=== PATIENT | female | born 1955 | race Caucasian/White ===

== ENCOUNTER 2019-09-03 00:57 | Observation (INO) | payer MEDICARE, SELFPAY ==
[2019-09-03] VITALS (8 sets, daily range): BP systolic 126–176; BP diastolic 78–97; PULSE 86–100; RESP 16–20; TEMP 36.7–37.1; O2SAT 92–96; BMI 39.5
--- NOTE | ~2019-09-03 | CT_ITS ---
EXAMINATION: CT brain wo con DATE: 09/03/2019 01:41 INDICATION: Posterior head injury TECHNIQUE: Computed tomography (CT) of the head was performed without intravenous contrast. Sagittal and coronal reconstructions were performed. The mA was adjusted according to patient size. Iterative reconstruction technique was employed. The dose-length product was 681.00 mGy-cm. COMPARISON: None FINDINGS: Right parietal scalp hematoma and laceration with a few foci of soft tissue gas. No fracture. No acut e intracranial hemorrhage, acute infarction or abnormal extra axial fluid collection. Ventricles are normal and symmetric. No mass/mass effect. The orbits, paranasal sinuses and mastoid air cells are no rmal. IMPRESSION: 1. No fracture or acute intracranial process. Reviewed, dictated and finalized at location A.
--- NOTE | ~2019-09-03 | CT_ITS ---
EXAMINATION: CT cervical spine wo con DATE: 09/03/2019 01:42 INDICATION: Posterior neck injury TECHNIQUE: Computed tomography (CT) of the cervical spine was performed without intravenous contrast. Automated exposure control and iterative reconstruction technique were employed. The dose-length pro duct was 524.97 mGy-cm. COMPARISON: MRI dated 12/11/2010 FINDINGS: Again seen is straightening of the lower cervical spine with C6-T1 anterior spinal fusion with anteri or plate and screw fixation at C7-T1. 2-3 mm anterolisthesis C5 on C6. Unfused vertebral body heights are normal. No acute fracture. Mild disc height loss at C2-C3 and C3-C4 and moderate disc height los s at C4-C5 and C5-C6 as well as at T1-T2 through T3-T4. There is mild disc height loss resulting from disc osteophyte complexes at a few levels most prominent at C4-C5 as well as due to a right paracent ral posterior osteophyte at the fused C6-C7 level. Bilateral multilevel facet osteoarthritis, severe at several levels in the cervical and upper thoracic spine with associated mild and moderate neural f oraminal stenosis. Cervical soft tissues are unremarkable. Mild emphysema suggested the apices of nolberto gs however specificities decreased by respiratory motion. IMPRESSION: 1. Moderate cervical spondylosis with anterior fusion at C6-T1. No acute osseous abnormality. Reviewed, dictated and finalized at location A. IMPRESSION: 1. Moderate cervical spondylosis with anterior fusion at C6-T1. No acute osseou s abnormality.
--- NOTE | 2019-09-03 01:35 | PC.NURSE ---
Skin tear located on front of lower left leg, area cleaned and dressed with band-aid, Pt. tolerated well.
[2019-09-03] MEDS: MORPHINE SULFATE 4 MG/ML INJ IV PUSH (01:37)
[2019-09-03] MEDS: TETANUS,DIPHTHERIA,AC PERTUSSIS ADULT 0.5 ML (ADACEL) IM (01:39)
[2019-09-03 01:46] LABS: Hematocrit 40.4 % (35.0-49.0); Hemoglobin 13.7 g/dL (12.0-15.0); Mean Corpuscular HGB Conc 33.9 g/dL (32.0-36.0); Mean Corpuscular Hemoglobin 30.8 pg (27.0-31.0); Mean Corpuscular Volume 90.8 fL (78.0-102.0); Mean Platelet Volume 9.2 fl (9.2-11.8); Platelet Count Result 216 K/mm3 (150-420); Red Blood Count 4.45 M/mm3 (4.20-5.40); Red Cell Distribution Width 12.7 % (11.6-14.4); White Blood Count 7.7 K/mm3 (4.8-10.8)
[2019-09-03 01:59] LABS: Partial Thromboplastin Time 25.7 SEC (22.3-31.6)
[2019-09-03 02:00] LABS: Alanine Aminotransferase 28 U/L (14-59); Albumin Level 3.8 g/dL (3.4-5.0); Alkaline Phosphatase 112 U/L (46-116); Anion Gap 18.2 mmol/L (7-16); Aspartate Amino Transferase 29 U/L (15-37); Bilirubin,Total 0.4 mg/dL (0.00-1.00); Blood Urea Nitrogen 13 mg/dL (7-18); Calcium 8.9 mg/dL (8.5-10.1); Carbon Dioxide 23 mmol/L (21-32); Chloride 100 mmol/L (98-108); Estimated CRCL calculation 76 ml/min; Estimated Glomerular Filt Rate 53; Glucose 308 mg/dL (70-99); Osmolality Calculated 296 mOsm/kg (285-295); Potassium 4.2 mmol/L (3.5-5.1); Sodium 137 mmol/L (136-145); Total Protein 7.7 g/dL (6.4-8.2)
[2019-09-03 02:05] LABS: Add Urine Microscopic? YES; Appearance Urine Clear (Clear); Bilirubin Urine Negative (Negative); Blood Urine 2+ (Negative); Color Urine Yellow (Yellow); Glucose Urine UA 3+ (Negative); Ketones Urine Negative (Negative); Leukocyte Esterase Ur Negative (Negative); Nitrate Urine Negative (Negative); Protein Urine Trace (Negative); Urobilinogen Urine 0.2 mg/dL (0.2-1.0)
[2019-09-03 02:07] LABS: BNP 23 pg/mL (0-100)
[2019-09-03 02:11] LABS: Bacteria Urine None seen /hpf; Squamous Epithelial Cell Urine None seen /hpf (Few); WBC Urine 0-3 /hpf (0-3)
--- NOTE | 2019-09-03 02:48 | ED.FALL ---
HPI - Fall General Chief Complaint: Fall Stated Complaint: Fall, Laceration on head Source: patient and family Mode of arrival: EMS Limitations: no limitations History of Present Illness HPI Narrative: This is a 63-year-old female that presents via EMS after she took a fall earlier this a.m. as she was going to the bathroom she she fell backwards, this was not witnessed as her was in bed sleeping and he was awoken with a loud Bang. Unsure if the patient lost consciousness or not, the patient states that she did not lose consciousness, but presents with some laceration to the occipital scalp, and headache with some neck pain. Currently there is pain that is rated an 8/10, with some neck stiffness and a laceration that is gaping to the posterior occipital scalp area 5cm in length. Patient has a history of diabetes, hypertension. Current blood sugars are 308. Currently there is some no hip pain no lower or mid back pain no fever chills no shortness of breath no blurry vision. MD complaint: fall Onset (ago): hour(s) Fall from: standing Fall witnessed: no Place fall occurred: home Loss of consciousness: none Prolonged down time: no Symptoms prior to fall: none Context: tripped/slipped Location of injury: head and neck Severity: moderate Severity scale (1-10): 8 Quality: dull Associated symptoms (after fall): headache and neck pain Related Data Home Medications Medication Instructions Recorded Confirmed amlodipine 5 mg PO DAILY 09/03/19 09/03/19 enalapril maleate 20 mg PO DAILY 09/03/19 09/03/19 fluoxetine 20 mg PO DAILY 09/03/19 09/03/19 furosemide 40 mg PO BID 09/03/19 09/03/19 glipizide 10 mg PO DAILY 09/03/19 09/03/19 metformin 1,000 mg PO DAILY 09/03/19 09/03/19 metoprolol succinate 50 mg PO DAILY 09/03/19 09/03/19 potassium chloride 20 meq PO BID 09/03/19 09/03/19 sitagliptin [Januvia] 100 mg PO DAILY 09/03/19 09/03/19 Allergies Allergy/AdvReac Type Severity Reaction Status Date / Time Latex, Natural Rubber Allergy Unknown Verified 09/03/19 01:12 Review of Systems Review of Systems: All systems reviewed & are unremarkable except as noted in HPI and below PMFSH Past Medical History Medical History Diabetes mellitus HTN (hypertension) Exam Const: General: no acute distress and alert Nutritional Appearance: well nourished and obese Orientation/consciousness: patient oriented x3 HENMT: Head: normal to inspection, hematoma and laceration Head images: 1. 5cm gaping laceration Ears: external ears normal and TM's normal bilaterally Face and sinus: normal facial exam Eyes: Conjunctivae: conjunctivae normal Pupils: Equal, round and reactive pupils present EOM: EOMs intact bilaterally Neck: Neck: normal visual inspection, no lymphadenopathy and no meningeal signs Chest: Chest palpation & inspection: normal inspection of the chest Resp: Effort & Inspection: normal respiratory effort Auscultation: clear to auscultation bilaterally Cardio: Rate: regular rate Rhythm: regular rhythm GI: Auscultation: normal bowel sounds : General: Yes no CVA tenderness Back/Spine/Pelvis: Back: no CVA tenderness Skin: General skin exam: normal color Rashes: no rashes Neuro: General: patient oriented x3, moves all extremities, no meningeal signs, no focal motor deficits and CN's II-XI intact bilaterally Extrem: General: normal to inspection and edema Psych: Appearance: grossly normal and well kempt Mental Status: mental status grossly normal Affect: normal affect Attitude: cooperative Thought content: Yes Normal thought content present Course Course Emergency Course: reassessment of patient, the patient did receive 4 mg IV morphine and her pain level went from 8/10 to 6/10 patient and present and advised that we would admit the patient for observation and neuro checks. Vital Signs Vital signs: Vital Signs Blood Pressure 176/97
[2019-09-03] MEDS: NEOMYCIN/POLYMYXIN/BACITRACIN OINTMENT PACKET 2 PACKET (03:03)
--- NOTE | 2019-09-03 03:03 | PC.NURSE ---
Assisted with Dr. Shin with insertion of marlyn to back of the right occipital, cleaned with Cleanser Wound spray, sodium chloride, applied Neosporin, Telfa Dressing 05/15, and Sharon Yang, Pt. tolerated procedure well.
[2019-09-03] MEDS: HYDROMORPHONE HCL 2 MG/ML VIAL IV PUSH (03:11)
--- NOTE | 2019-09-03 03:30 | PC.NURSE ---
Patient admitted to room 226 from ER. Patient has gauze dressing to head with bloody shadowing over marlyn to the back of her head. She has an Ice pack to the back of her head. Patient is alert and oriented. She required assist of three to be moved from the stretcher to the bed. vital signs were taken and blood sugar checked. Patient is very diaphoretic upon admission. She is on room air. she has an IV in place in her left hand. Patient was educated vocational ed instructor light use and has it within reach.
--- NOTE | 2019-09-03 04:06 | ADMGEN ---
This patient, Ashwini Wheeler, was admitted to 2nd Floor Room 226-2. Patient/family oriented to hospital policies and general routines including ID bracelet, bed and alarms, visiting hours, pain management, procedures, bathroom and other care routines, personal items, smoking policy, room service/diet, and visiting hours. Valuables list has been completed. Information on how to activate the Rapid Response Team has been discussed. Patient/Family are encouraged to report perceived risks to care and to ask questions if they do not understand what they are told or what they should do.
--- NOTE | 2019-09-03 04:21 | PC.NURSE ---
[address] Shin regarding pt's redness in pt's abdominal fold. Orders received and noted.
[2019-09-03 04:52] LABS: Glucose Point of Care 327 (65-105)
[2019-09-03] MEDS: glipiZIDE 5 MG TABLET 10 MG PO (05:45)
[2019-09-03] MEDS: TOLNAFTATE 1% POWDER 45 GM BTL 1 APPLIC TOPICAL (05:45)
--- NOTE | 2019-09-03 07:00 | PC.NURSE ---
Patient states she feels ok. Returned to baseline.
[2019-09-03 07:42] LABS: Glucose Point of Care 397 (65-105)
--- NOTE | 2019-09-03 08:00 | PC.NURSE ---
atient states she feels ok. Returned to baseline.
[2019-09-03] MEDS: FLUoxetine HCL 10 MG CAPSULE 20 MG PO (08:39)
[2019-09-03] MEDS: ENALAPRIL MALEATE 5 MG TABLET 20 MG PO (08:39)
[2019-09-03] MEDS: FUROSEMIDE 40 MG TABLET PO (08:39)
[2019-09-03] MEDS: AMLODIPINE BESYLATE 5 MG TABLET PO (08:39)
[2019-09-03] MEDS: metFORMIN HCL 500 MG TABLET 1000 MG PO (08:40)
[2019-09-03] MEDS: POTASSIUM CHLORIDE 20 MEQ TABLET PO (08:40)
[2019-09-03] MEDS: METOPROLOL SUCCINATE EXT REL 50 MG TABCR PO (08:40)
[2019-09-03] MEDS: ACETAMINOPHEN 325 MG TABLET 650 MG PO (08:40)
[2019-09-03] MEDS: ONDANSETRON INJ 4 MG/2 ML VIAL IV PUSH (09:24)
[2019-09-03 10:00] LABS: Basophils Absolute Auto 0.03 K/mm3 (0.00-0.10); Basophils Percent Auto 0.3 % (0.0-1.0); Eosinophils Absolute Auto 0.01 K/mm3 (0.02-0.50); Eosinophils Percent Auto 0.1 % (1.0-6.0); Hematocrit 38.4 % (35.0-49.0); Hemoglobin 12.8 g/dL (12.0-15.0); Immature Granulocyte Absolute 0.03 K/mm3 (0.00-0.00); Immature Granulocyte Percent A 0.3 % (0.0-0.0); Lymphocytes Absolute Auto 1.26 K/mm3 (1.10-4.50); Mean Corpuscular HGB Conc 33.3 g/dL (32.0-36.0); Mean Corpuscular Hemoglobin 30.5 pg (27.0-31.0); Mean Corpuscular Volume 91.4 fL (78.0-102.0); Mean Platelet Volume 9.1 fl (9.2-11.8); Monocytes Absolute Auto 0.44 K/mm3 (0.10-0.90); Monocytes Percent Auto 4.5 % (2.0-11.0); Neutrophils Absolute Auto 7.9 K/mm3 (1.7-7.2); Neutrophils Percent Auto 81.8 % (50.0-70.0); Platelet Count Result 213 K/mm3 (150-420); Red Cell Distribution Width 12.8 % (11.6-14.4); White Blood Count 9.7 K/mm3 (4.8-10.8)
[2019-09-03 10:20] LABS: Alanine Aminotransferase 34 U/L (14-59); Albumin Level 3.6 g/dL (3.4-5.0); Alkaline Phosphatase 97 U/L (46-116); Aspartate Amino Transferase 59 U/L (15-37); Bilirubin,Total 0.5 mg/dL (0.00-1.00); Blood Urea Nitrogen 14 mg/dL (7-18); Calcium 8.4 mg/dL (8.5-10.1); Carbon Dioxide 30 mmol/L (21-32); Chloride 100 mmol/L (98-108); Estimated CRCL calculation 49 ml/min; Estimated Glomerular Filt Rate 46; Glucose 294 mg/dL (70-99); Osmolality Calculated 293 mOsm/kg (285-295); Sodium 136 mmol/L (136-145); Total Protein 7.2 g/dL (6.4-8.2)
--- NOTE | 2019-09-03 11:14 | PM.SD ---
Same Day Admit/Disch: HPI History of Present Illness Chief complaint: Fall, Laceration on head Narrative: Ashwini Wheeler is a 63 year old female that presented to the ED this morning post fall with head injury. Patient PMH is diabetes and hypertension. according to patient she was ambulating to the restroom this morning and slipped and fell hitting the back of her head. her was in the bed and heard a loud Bang and found the patient on the floor . patient noted that she did not lose consciousness. While in the ED a CT of the head and spine was completed which was negative for fracture or hemorrhage she was given pain medication and had a laceration on her posterior occipital scalp approximately 5 cm. with approximately [address] vital signs are 98.5, 95, 18, 94%, 126/78. patient's blood sugar is elevated she will receive additional insulin with her regular home meds. patient denies any memory problems, confusion, drowsiness or feeling sluggish, head pressure, slurred speech, fatigue, ringing in her ears, dizziness, double vision or blurred vision, nausea vomiting, shortness of breath, or chest pains she does have a slight headache that is controlled with Tylenol. her discharge paperwork will be faxed to her primary care physician she will need to go in a couple weeks to get the marlyn removed. [facility] Past Medical History Medical History Diabetes mellitus HTN (hypertension) Social History Social History Smoking packs per day: 1.5 Smoking cigarettes per day: 30.0 Years smoked: 14 Smoking pack-years: 21.00 Smoking status: Former smoker Tobacco type: cigarettes Second hand tobacco smoke exposure: Yes Alcohol intake: never Substance use: never Gender identity (if verbalized by the patient): Female Sexual Orientation (if Verbalized by the Patient): Straight or Heterosexual Spiritual care concerns: No Same Day Admit/Disch: Med Pre-admit Medications Home Medications Medication Instructions Recorded Confirmed Type amlodipine 5 mg PO DAILY 09/03/19 09/03/19 History enalapril maleate 20 mg PO DAILY 09/03/19 09/03/19 History fluoxetine 20 mg PO DAILY 09/03/19 09/03/19 History furosemide 40 mg PO BID 09/03/19 09/03/19 History glipizide 10 mg PO DAILY 09/03/19 09/03/19 History metformin 1,000 mg PO DAILY 09/03/19 09/03/19 History metoprolol succinate 50 mg PO DAILY 09/03/19 09/03/19 History potassium chloride 20 meq PO BID 09/03/19 09/03/19 History sitagliptin [Januvia] 100 mg PO DAILY 09/03/19 09/03/19 History Exam Narrative: Exam Narrative: General: A well-developed, well-nourished male sitting up in bed no acute distress. HEENT: Normocephalic, atraumatic. PERRL, EOMI. Sclerae anicteric. Oral mucosa moist. Oropharynx clear. Neck: Supple. Respiratory: Lungs are clear to auscultation bilaterally. Cardiovascular: Regular rate and rhythm with S1-S2. Gastrointestinal: Abdomen is soft, nontender, and nondistended with positive bowel sounds. No organomegaly. Skin: laceration to the posterior occipital scalp with approximately [address] and serosanguineous drainage Extremities: No cyanosis, clubbing, or edema. Radial and pedal pulses intact. Neurological: Alert. Cranial nerves 2-12 are grossly intact. No gross focal deficits to casual conversation. Psychiatric: Pleasant and cooperative with normal mood and affect. Judgment and insight intact. DS: Data Data Completed and Pending Labs on day of discharge: Labs from last 24 hours 09/03/19 09/03/19 09/03/19 09:53 09:53 07:34 WBC 9.7 RBC 4.20 Hgb 12.8 Hct 38.4 MCV 91.4 MCH 30.5 MCHC 33.3 RDW 12.8 Plt Count 213 MPV 9.1 L Immature Gran % (Auto) 0.3 H Neut % (Auto) 81.8 H Lymph % (Auto) 13.0 L [place] % (Auto) 4.5 Eos % (Auto) 0.1 L Baso % (Auto) 0.3 L
[2019-09-03 11:38] LABS: Glucose Point of Care 270 (65-105)
== END 2019-09-03 14:10 | disposition home or self-care (01) ==
LOC: CHSED 03:00 → CHS2ND 03:09
PROVIDERS: Admitting Provider Emergency Medicine; Emergency Provider Emergency Medicine; PCP Family Medicine; Visit Provider Emergency Medicine
DX: S01.01XA Laceration without foreign body of scalp, initial encounter (principal); S00.03XA Contusion of scalp, initial encounter; M54.2 Cervicalgia; W01.10XA Fall on same level from slipping, tripping and stumbling with subsequent striking against unspecified object, initial encounter; Y92.012 Bathroom of single-family (private) house as the place of occurrence of the external cause; I10 Essential (primary) hypertension; E11.9 Type 2 diabetes mellitus without complications; Z87.891 Personal history of nicotine dependence
CPT/HCPCS: 12002; 36415; 70450; 72125; 80053; 81001; 83880; 85025; 85027; 85610; 85730; 90471; 90715; 96374; 96375; 99284; 99285; A9270; G0378; J1170; J1815; J2270; J2405